=== PATIENT | male | born 1945 | race African-American/Black ===

== ENCOUNTER 2016-09-19 14:31 | Emergency (ER) | payer BC ==
--- NOTE | ~2016-09-19 | US85 ---
[facility] A Service of [facility] & [facility] RADIOLOGY TEXT RESULTS PATIENT: CAITY AZUL LOCATION: CFTX : 41 UNIT #: [id number] AGE: [address]: Sonja Irving MD SEX: M ORDER DR: [id number] [facility] [address] [place], [place] [address] [id number] MR#: [id number] Acc #: [id number] NAME: CAITY AZUL : 1945 SEX: M STUDY DATE/TIME: 09/19/2016 15:10 UNIT: CFTX ROOM: STUDY DESCRIPTION: [facility] [employer] or [facility] Attending Physician: Sonja Irving M.D. Ordering Physician: Sonja Irving M.D. Primary Care Physician: No Primary Care Physician MEDICAL IMAGING REPORT This report is preliminary unless electronic signature is present EXAM Left leg vein Doppler, 09/19. INDICATION Left calf pain for 3 months. TECHNIQUE Venous ultrasound examination of the left lower extremity was performed using grayscale, spectral Doppler and color flow Doppler imaging. FINDINGS The examination is negative. There is no evidence of left lower extremity deep venous thrombus from the groin to the lower calf. Visualized greater saphenous vein is also patent. IMPRESSION Negative examination. No evidence of left lower extremity deep venous thrombosis. Dictated by... Mitchel Ward Jr., M.D. THIS IS AN ELECTRONICALLY VERIFIED REPORT Mitchel Ward Jr., M.D. at 09/20/2016 4:46 PM HANK/margot TD: 09/19/2016 16:34 JOB #: [id number] MEDICAL IMAGING REPORT Page 1 of 1 COPY
== END 2016-09-19 15:41 | disposition home or self-care (01) ==
LOC: CFTX 14:31
DX: R60.0 Localized edema (principal); E11.9 Type 2 diabetes mellitus without complications; I10 Essential (primary) hypertension; E78.5 Hyperlipidemia, unspecified
CPT/HCPCS: 93971; 99284